=== PATIENT | female | born 1995 | race African-American/Black ===

== ENCOUNTER 2023-01-21 14:54 | Emergency (ER) | payer MEDICAID ==
[~2023-01-21] VITALS: Ht 162.6 cm; Wt 97.6 kg
[2023-01-21 15:13] VITALS: O2SAT 100
[2023-01-21] MEDS ORDERED: PHEN1CAP86 MT (17:46)
[2023-01-21 22:00] VITALS: BP 138/72; PULSE 75; RESP 17; TEMP 98.6
== END 2023-01-21 22:15 | disposition home or self-care (01) ==
LOC: ER 14:54
DX: J06.9 Acute upper respiratory infection, unspecified (principal); Z20.822 Contact with and (suspected) exposure to COVID-19
CPT/HCPCS: 87426; 99283; C9803